=== PATIENT | female | born 1960 | race African-American/Black ===

== ENCOUNTER 2016-09-29 16:04 | Inpatient (IN) | payer OTHER ==
[~2016-09-29] VITALS: Ht 165.1 cm; Wt 96.6 kg
[~2016-09-29 16:04] MED LIST: BACLOFEN10 MG; ECOTRIN81 M1 PO; ENALAPRIL PO; EYE; HCTZ PO; ISORDIL PO; LIPITOR20 MG PO; LIPITOR40 MG; LOPRESSOR25 MG PO; MOTRIN800 M1; NAPROSYN500 M1; NIACIN500 M3 PO; NITROQUICK0.4 M1 SL; PATANOL 5 ML5 ML OP; PERCOCET 325 MG1 TA4; PROVENTIL0.09 MG/A1
[2016-09-29 16:08] VITALS: BP 145/93
--- NOTE | 2016-09-29 16:25 | NUR ---
PT AMBULATED TO BED 1 AT THIS TIME.
--- NOTE | 2016-09-29 16:34 | NUR ---
DR. BENTON AWARE OF THE RESULT OF URINE DIPSTICK AND PREG.
--- NOTE | 2016-09-29 16:37 | NUR ---
PT CAME TO ER W/ C/O GENERALIZED MALAISE X1 WEEK.PT STATES THAT HER MOUTH IS DRY AND SHE'S ALWAYS THIRSTY.PT ALSO CLAIMS THAT SHE IS LOOSING WEIGHT. PT STATES THAT SHE IS FEELING"FLUTTERING PAIN, UNDER LEFT BREAST" AND HER VISSIONS IS BLURRY.HOB ELEVATED.SIDERAILS UP.NEEDS ATTENDED.SAFETY PRECAUTION INSTITUTED. COUSIN AT BEDSIDE.
[2016-09-29] MEDS ORDERED: NACL 0.9% 500 ML IV ONE ×2 (16:39)
[2016-09-29] MEDS ORDERED: INSULIN HUMAN REGULAR 100 UNITS/ML 10 ML VIAL IVP ONE (17:35)
--- NOTE | 2016-09-29 17:37 | NUR ---
PT AAO PT C/O OF BACK PAIN, WILL INFORM MD,IVF ONGOING WELL TOLERATED.
[2016-09-29] MEDS ORDERED: METOPROLOL 25 MG TAB PO ONE (17:55)
[2016-09-29] MEDS ORDERED: ASPIRIN 81 MG TAB.CHEW PO ONE (17:55)
--- NOTE | 2016-09-29 18:20 | NUR ---
Pt talking to cousin, vital sign stable, no distress noted, skin warm to touch resp. even and unlabored, no pain noted at this time.
--- NOTE | 2016-09-29 18:22 | NUR ---
DR BENTON AT BEDSIDE
--- NOTE | 2016-09-29 18:26 | NUR ---
DR PALMA PT REFUSED LOPRESSOR
[2016-09-29] MEDS ORDERED: DEXTROSE 50% 50 ML SYR IVP PRN (18:30)
[2016-09-29] MEDS ORDERED: cloNIDine 0.1 MG TAB PO PRN (18:30)
[2016-09-29] MEDS ORDERED: HYDROcodone/APAP 5/325 MG 1 TAB TAB PO PRN (18:30)
[2016-09-29] MEDS ORDERED: LORazepam 2 MG/ML VIAL IVP PRN (18:30)
[2016-09-29] MEDS ORDERED: ACETAMINOPHEN 325 MG TAB PO PRN (18:30)
[2016-09-29] MEDS ORDERED: ONDANSETRON 4 MG/2 ML VIAL IVP PRN (18:30)
--- NOTE | 2016-09-29 18:32 | NUR ---
REPORT GIVEN TO EB TAM IN TELE
--- NOTE | 2016-09-29 18:45 | NUR ---
TRANSFER TO TELE NOW PT AAO ASSISTED BY YUE.
--- NOTE | 2016-09-29 19:35 | NUR ---
RECEIVED FROM AM RN REPORT RE: NEW PT. AWAKE AND ALERT. NO SOB. DENIES ANY PAIN AT THIS TIME. CARE PLANS FOR THE NIGHT DISCUSSED WITH PT. CALL LIGHT WITH IN REACH. ORIENTED X 4. ROM X 4. CLEAR SPEECH. TELEMETRY MONITORING. DX. OF CHEST PAIN
[2016-09-29 20:00] VITALS: BP 112/80
[2016-09-29] MEDS: BLOOD GLUCOSE MONITORING 1 DEV DEV FS SCH (21:18)
[2016-09-29] MEDS: ISOSORBIDE DINITRATE 10 MG TAB PO SCH (21:19)
[2016-09-29] MEDS: INSULIN ASPART SLIDING SCALE 100 UNITS/ML VIAL SUBQ PRN (21:20)
--- NOTE | 2016-09-29 22:00 | NUR ---
PT. STILL AWAKE AT THIS TIME. DAUGHTERS AT BEDSIDE VISITING. ENCOURAGED TO USE CALL LIGHT FOR ANY HELP SHE MAY NEED. "OK" DENIES ANY PAIN AT THIS TIME. " I JUST WANT TO REST ". TELEMETRY MONITORING.
[2016-09-29] MEDS: diphenhydrAMINE 50 MG CAP PO PRN (22:30)
--- NOTE | 2016-09-30 | NUR ---
PT. SLEEPING. DAUGHTERS LEFT. CALL LIGHT WITH IN REACH. NO SOB. NO RESTLESSNESS NOTED. TELEMETRY MONITORING.
[2016-09-30 00:14] VITALS: BP 113/70
--- NOTE | 2016-09-30 01:36 | NUR ---
PT. SLEEPING AT THIS TIME.
--- NOTE | 2016-09-30 04:00 | NUR ---
CHECKED ON PT. SLEEPING. NO RESTLESSNESS. TELEMETRY MONITORING. HEPLOCKED IV..
[2016-09-30 04:29] VITALS: BP 116/80
[2016-09-30] MEDS: BLOOD GLUCOSE MONITORING 1 DEV DEV FS SCH ×4 (07:00→21:22)
[2016-09-30] MEDS: INSULIN ASPART SLIDING SCALE 100 UNITS/ML VIAL SUBQ PRN ×3 (07:01→21:42)
--- NOTE | 2016-09-30 07:23 | NUR ---
SLEPT WELL THIS SHIFT. WAKES UP WHEN CALLED BY NAME. NO CHEST PAIN COMPLAINT THIS SHIFT.
--- NOTE | 2016-09-30 07:24 | NUR ---
RECEIVED REPORT FROM NIGHT NURSE PAUL RN, PATIENT APPEARED TO BE CALM AWAKE AND RESTING WELL IN BED. AAOX4 NO SIGN OF DISTRESS NOTED. NO SOB OR SIGN OF DISTRESS NOTED AT THIS TIME. INITIAL ASSESSMENT DONE. PATIENT DENIED ANY PAIN OR CHEST DISCOMFORT. VSS WITH NO FEVER. PATIENT HAS IV 20G SL TO RIGHT AC INTACT AND FLUSHED WELL. SKIN INTACT. PLAN OF CARE, PAIN MANAGEMENT AND MEDICATION REGIMENTS DISCUSSED, PATIENT VERBALIZED UNDERSTANDING. CALL LIGHT WITHIN REACH. WILL CONTINUE TO MONITOR.
--- NOTE | 2016-09-30 08:30 | NUR ---
PATIENT HAS BEEN SCREENED AND CATEGORIZED HIGH NUTRITION RISK. PATIENT WILL BE SEEN WITHIN 1-2 DAYS OF ADMISSION. 09/30/16-10/01/[address]
[2016-09-30] MEDS: ISOSORBIDE DINITRATE 10 MG TAB PO SCH ×2 (08:49→21:00)
[2016-09-30] MEDS: ENALAPRIL 2.5 MG TAB PO SCH (08:49)
[2016-09-30] MEDS: ASPIRIN 81 MG TAB.CHEW PO SCH (08:50)
[2016-09-30] MEDS: ENOXAPARIN 40 MG/0.4 ML SYR SUBQ SCH (08:54)
--- NOTE | 2016-09-30 08:55 | NUR ---
MORNING DUE MEDICATIONS WITH TEACHING GIVEN, PATIENT TOLERATED WELL AND VERBALIZED UNDERSTANDING. DENIED ANY PAIN OR DISCOMFORT. ALL NEEDS ARE MET. CALL LIGHT WITHIN REACH. WILL CONTINUE TO MONITOR.
[2016-09-30] MEDS ORDERED: OLOPATADINE HCL OP SCH (09:00)
[2016-09-30] MEDS ORDERED: METOPROLOL 25 MG TAB PO SCH (09:00)
[2016-09-30 10:05] VITALS: BP 96/53
[2016-09-30] MEDS ORDERED: INSULIN DETEMIR 100 UNITS/ML 10 ML VIAL SUBQ SCH (11:39)
[2016-09-30] MEDS ORDERED: MAGNESIUM CHLORIDE 64 MG TABEC PO SCH (11:40)
[2016-09-30 12:00] VITALS: BP 100/55
--- NOTE | 2016-09-30 12:42 | NUR ---
DUE MEDICATION GIVEN AND INSULINS GIVEN FOR BLOOD SUGAR 282. PATIENT TOLERATED WELL. NO SIGN OF DISTRESS NOTED. PATIENT RESTING WELL IN BED. ALL NEEDS ARE MET. CALL LIGHT WITHIN REACH. WILL CONTINUE TO MONITOR.
--- NOTE | 2016-09-30 14:00 | NUR ---
DR PERLA IS HERE TO SEE PATIENT. NO CHANGE IN CONDITION NOTED. HD STILL IN PROGRESS. Addendum: 09/30/16 at 1401 by Rao Kitchen RN WRONG PATIENT
--- NOTE | 2016-09-30 14:01 | NUR ---
DR PERLA IS HERE TO SEE PATIENT. PATIENT RESTING WELL IN BED. NO SIGN OF DISTRESS NOTED.
[2016-09-30 16:00] VITALS: BP 107/69
--- NOTE | 2016-09-30 19:24 | NUR ---
RECEIVED PT REPORT FROM BAIRON TESFAYE AT BEDSIDE FOR CONTINUITY OF CARE. PT IS STABLE, NO ACUTE DISTRESS NOTED.
--- NOTE | 2016-09-30 19:25 | NUR ---
ENDORSED PATIENT CURRENT PLAN OF CARE TO NIGHT NURSE ALAN RN, PATIENT RESTING WELL IN BED WITH NO SIGN OF DISTRESS NOTED. FAMILY MEMBER AT BEDSIDE.
--- NOTE | 2016-09-30 19:50 | NUR ---
SHIFT ASSESSMENT DONE AT THIS TIME. PT STABLE NO ACUTE DISTRESS NOTED. PT IS A/O X4, ABLE TO FOLLOW COMMANDS. VITAL SIGNS ARE STABLE, PT ON ROOM AIR. PT DENIES N/V/D AND OR CHEST PAIN. NO SOB NOTED. LUNGS ARE CLEAR, BOWEL SOUNDS ARE ACTIVE. SKIN INTACT. IV ACCESS TO RT AC #20G, PATENT AND INTACT. DISCUSSED WITH PT PLAN OF CARE, VERBALIZED UNDERSTANDING. CALL LIGHT WITHIN EASY REACH. WILL CONTINUE TO MONITOR PT.
[2016-09-30 20:00] VITALS: BP 106/63
--- NOTE | 2016-09-30 20:01 | NUR ---
RECEIVED TELEPHONE ORDERS FROM DR MARTIN COVERING FOR DR GAMA FOR 4MG MAG SULFATE FOR MAGNESIUM 1.6.
[2016-09-30] MEDS ORDERED: MAG SULF 2000 MG/WATER PREMIX 100 ML IV SCH (20:05)
[2016-09-30] MEDS: PANTOPRAZOLE 40 MG TABEC PO SCH ×2 (21:33→21:44)
[2016-09-30] MEDS: diphenhydrAMINE 50 MG CAP PO PRN (21:39)
--- NOTE | 2016-09-30 21:42 | NUR ---
ADMINISTERED INSULIN FOR BLOOD GLUCOSE OF 311. PM MEDICATIONS TOLERATED WELL. WILL CONTINUE TO MONITOR PT.
--- NOTE | 2016-09-30 22:44 | NUR ---
RT ARM IV SITE INFILTRATED, IVP STOPPED. WILL RESTART NEW IV.
[2016-10-01] VITALS: BP 99/58
--- NOTE | 2016-10-01 01:00 | NUR ---
VSS. NO ACUTE DISTRESS. DENIES CHEST PAIN OR SOB.
--- NOTE | 2016-10-01 02:00 | NUR ---
PT NOTED SLEEPING NO DISTRESS. IV ACCESS STILL INTACT.
--- NOTE | 2016-10-01 03:07 | NUR ---
PT SLEEPING, NO DISTRESS.
--- NOTE | 2016-10-01 03:56 | NUR ---
VITAL SIGNS ARE STABLE. NO DISTRESS, PT SLEEPING WELL.
[2016-10-01 04:00] VITALS: BP 100/62
[2016-10-01] MEDS: BLOOD GLUCOSE MONITORING 1 DEV DEV FS SCH ×4 (06:35→20:51)
[2016-10-01] MEDS: INSULIN ASPART SLIDING SCALE 100 UNITS/ML VIAL SUBQ PRN ×4 (06:38→20:53)
--- NOTE | 2016-10-01 07:31 | NUR ---
ENDORSED PT TO BAIRON TESFAYE FOR CONTINUITY OF CARE. NO DISTRESS. PT SLEEPING.
--- NOTE | 2016-10-01 07:35 | NUR ---
RECEIVED REPORT FROM NIGHT NURSE ALAN TESFAYE, PATIENT APPEARED TO BE ASLEEP AWAKE TO NAME CALLED RESTING WELL IN BED. AAOX4 NO SIGN OF DISTRESS NOTED. O2 SAT 100% ON ROOM AIR. NO SOB OR SIGN OF DISTRESS NOTED AT THIS TIME. INITIAL ASSESSMENT DONE. PATIENT DENIED ANY PAIN OR CHEST DISCOMFORT. VSS WITH NO FEVER. PATIENT HAS IV 22G SL TO RIGHT FOREARM INTACT AND FLUSHED WELL. SKIN INTACT. PLAN OF CARE, PAIN MANAGEMENT AND MEDICATION REGIMENTS DISCUSSED, PATIENT VERBALIZED UNDERSTANDING. CALL LIGHT WITHIN REACH. WILL CONTINUE TO MONITOR.
[2016-10-01 08:00] VITALS: BP 109/65
[2016-10-01] MEDS: ENOXAPARIN 40 MG/0.4 ML SYR SUBQ SCH (08:32)
[2016-10-01] MEDS: INSULIN DETEMIR 100 UNITS/ML 10 ML VIAL SUBQ SCH (08:33)
--- NOTE | 2016-10-01 08:36 | NUR ---
DUE SUBQ DUE MEDICATIONS GIVEN WITH TEACHING. PATIENT TOLERATED WELL AND VERBALIZED UNDERSTANDING. NO SIGN OF DISTRESS NOTED. PATIENT DENIED ANY DISCOMFORT. ALL NEEDS ARE MET AT THIS TIME. CALL LIGHT WITHIN REACH. WILL CONTINUE TO MONITOR.
[2016-10-01] MEDS: METOPROLOL 25 MG TAB PO SCH (08:37)
[2016-10-01] MEDS: ISOSORBIDE DINITRATE 10 MG TAB PO SCH ×2 (08:37→21:00)
[2016-10-01] MEDS: ENALAPRIL 2.5 MG TAB PO SCH (08:37)
--- NOTE | 2016-10-01 09:39 | NUR ---
CHECKED IN ON PATIENT. NO SIGN OF DISTRESS NOTED. NO COMPLAINING OF DISCOMFORT. PROVIDED TEACHING WITH DIABETIC CARE AND MANAGEMENT. PATIENT VERBALIZED UNDERSTANDING. WILL CONTINUE TO MONITOR.
--- NOTE | 2016-10-01 09:42 | NUR ---
CM NOTE INITIAL REVIEW FAXED TO [facility] / FAX# [phone], C: [phone]
[2016-10-01] MEDS ORDERED: REGADENOSON 0.4 MG/5 ML SYR IV SCH (10:00)
--- NOTE | 2016-10-01 11:57 | NUR ---
PATIENT LEFT THE FLOOR FOR [facility] WITH NO SIGN OF DISTRESS NOTED. DENIED ANY PAIN OR DISCOMFORT.
--- NOTE | 2016-10-01 12:13 | NUR ---
10/01/16 RD INITIAL ASSESSMENT COMPLETED PLEASE REFER TO NUTRITION ASSESSMENT UNDER CARE ACTIVITY FOR ESTIMATED NUTRITIONAL NEEDS. RD RECOMMENDATIONS: 1. CONTINUE NPO MEDICALLY APPROPRIATE PER MD 2. WHEN MEDICALLY APPROPRIATE ADVANCE DIET TOLERATED TO CCHO 60 GM, CARDIAC DIET 3. RD PROVIDED PT WITH DM DIET EDUCATION 4. RD WILL F/U 3-5 DAYS; MODERATE RISK. UMA MARTINEZ RD
[2016-10-01] MEDS ORDERED: SIMVASTATIN 40 MG TAB PO SCH (12:30)
--- NOTE | 2016-10-01 13:20 | NUR ---
LEXISCAN STRESS TEST DONE.
--- NOTE | 2016-10-01 14:05 | NUR ---
PATIENT BACK TO UNIT FROM [facility]. PATIENT REMAIN CALM, AWAKE AND RESTING WELL IN BED. NO SIGN OF DISTRESS NOTED. DENIED ANY PAIN OR DISCOMFORT. UPDATED PATIENT CURRENT PLAN OF CARE, PATIENT VERBALIZED UNDERSTANDING. CALL LIGHT WITHIN REACH. WILL CONTINUE TO MONITOR.
[2016-10-01 14:10] VITALS: BP 112/71
[2016-10-01] MEDS: ASPIRIN 81 MG TAB.CHEW PO SCH (14:34)
[2016-10-01] MEDS: ATORVASTATIN 20 MG TAB PO SCH (14:34)
--- NOTE | 2016-10-01 14:53 | NUR ---
PAT[facility]. SANDWICH GIVEN PER PATIENT REQUEST. INSULIN 4UNIT GIVEN FOR BLOOD SUGAR OF 212. WILL CONTINUE TO MONITOR.
--- NOTE | 2016-10-01 15:51 | NUR ---
REACH BACK LEXISCAN IMPRESSION RESULT TO DR. PERLA. STATED HE WILL CALL BACK. AWAITING FOR MD CALL BACK.
--- NOTE | 2016-10-01 16:24 | NUR ---
DR PERLA TALKED TO PATIENT ON THE PHONE AND EXPLAINED PATIENT CURRENT PLAN OF CARE.
--- NOTE | 2016-10-01 16:24 | NUR ---
RECEIVED TELEPHONE ORDER FROM DR PERLA. WILL FOLLOW THROUGH MD ORDERS.
--- NOTE | 2016-10-01 16:56 | NUR ---
ENDORSED PATIENT TO NURSE Jagdish WALTER RN FOR CONTINUITY OF CARE. PATIENT RESTING WELL IN BED. NO SIGN OF DISTRESS NOTED AT THIS TIME.
--- NOTE | 2016-10-01 16:57 | NUR ---
RECEIVED REPORT FROM BRIEN WADDELL. WILL CONTINUE WITH CURRENT PLAN OF CARE. MNURVI.
--- NOTE | 2016-10-01 17:31 | NUR ---
FOOD TRAYS ARRIVED TO UNIT. BLOOD GLUCOSE 284, ADMINISTERED 6 UNITS OF INSULIN ORDERED. PT TOLERATED WELL. WILL CONTINUE TO MONITOR.
--- NOTE | 2016-10-01 19:26 | NUR ---
ENDORSED CARE TO BRIEN WATKINS. PT IN STABLE CONDITION.
--- NOTE | 2016-10-01 19:27 | NUR ---
RECEIVE REPORT FOR DAY SHIFT NURSE, JOSE ANGEL Armstrong, RN. PATIENT IS AAOX4, FAMILY MEMBER AT BEDSIDE, DENIES ANY PAIN AT THIS TIME. ON ROOM AIR, NO S/S OF RESPIRATORY DISTRESS/DISCOMFORT NOTED. SKIN IS INTACT, WARM TO TOUCH, IV SITE IS PATENT AND INTACT. PLAN OD CARE DISCUSSED, VERBALIZED UNDERSTANDING. SAFETY MEASURES CHECKED, CALL LIGHT WITHIN REACH. WILL CONTINUE TO MONITOR.
[2016-10-01 20:00] VITALS: BP 103/71
--- NOTE | 2016-10-01 20:53 | NUR ---
BSL 283, INSULIN COVERAGE WAS GIVEN. EDUCATED THE THE PATIENT ABOUT INSULIN BENEFITS AND SIDE EFFECTS, VERBALIZED UNDERSTANDING.
[2016-10-01] MEDS: diphenhydrAMINE 50 MG CAP PO PRN (23:06)
[2016-10-02] VITALS: BP 91/55
--- NOTE | 2016-10-02 | NUR ---
V/S CHECKED AND STABLE. DENIES ANY PAIN. NO S/S OF RESPIRATORY DISTRESS/DISCOMFORT NOTED.
--- NOTE | 2016-10-02 02:00 | NUR ---
PT IS SLEEPING. NO S/S OF RESPIRATORY DISTRESS/DISCOMFORT NOTED.
[2016-10-02 04:00] VITALS: BP_SYST 81; BP_SYST 87; BP_DIAS 49; BP_DIAS 57
[2016-10-02] MEDS: BLOOD GLUCOSE MONITORING 1 DEV DEV FS SCH ×2 (05:27→11:58)
[2016-10-02] MEDS: INSULIN ASPART SLIDING SCALE 100 UNITS/ML VIAL SUBQ PRN ×2 (05:39→12:16)
--- NOTE | 2016-10-02 07:20 | NUR ---
ENDORSED REPORT TO AM NURSE FOR CONTINUITY OF CARE. PT IS IN STABLE CONDITION.
--- NOTE | 2016-10-02 07:30 | NUR ---
RECEIVED PT RESTING COMFORTABLY IN BED. AAOX4, ABLE TO VERBALIZE NEEDS. NO COMPLAINTS OF CHEST PAIN, SOB, OR S/S ACUTE DISTRESS. ROUTINE/PLAN OF CARE DISCUSSED AND REVIEWED, PT VERBALIZES UNDERSTANDING AND COMPLIANCE. IV SL TO RIGHT FA, SITE ASYMPTOMATIC. INDEPENDENT ADLs OBSERVED, STEADY GAIT NOTED. SAFETY PRECAUTIONS OBSERVED AND MAINTAINED. CALL LIGHT WITHIN REACH. WILL CONTINUE TO MONITOR.
[2016-10-02 08:00] VITALS: BP 99/65
[2016-10-02] MEDS: ISOSORBIDE DINITRATE 10 MG TAB PO SCH (09:00)
[2016-10-02] MEDS: METOPROLOL 25 MG TAB PO SCH (09:00)
[2016-10-02] MEDS: ATORVASTATIN 20 MG TAB PO SCH (09:00)
[2016-10-02] MEDS: PANTOPRAZOLE 40 MG TABEC PO SCH (09:00)
[2016-10-02] MEDS: ASPIRIN 81 MG TAB.CHEW PO SCH (09:00)
[2016-10-02] MEDS: ENOXAPARIN 40 MG/0.4 ML SYR SUBQ SCH (09:00)
[2016-10-02] MEDS: ENALAPRIL 2.5 MG TAB PO SCH (09:00)
[2016-10-02] MEDS: INSULIN DETEMIR 100 UNITS/ML 10 ML VIAL SUBQ SCH (09:00)
--- NOTE | 2016-10-02 09:00 | NUR ---
FAROOQ. BRODERICKO FOR COMPLIANCE REVIEW SPECIALIST PROCEDURE AT [facility], HELD MEDS AND LOVENOX ORDERED.
--- NOTE | 2016-10-02 09:00 | NUR ---
CM NOTE SPOKE W/ JAMES FROM [facility] CARDIAC CATH ([phone]). VERIFIED PATIENT IS ON SCHEDULED FOR CARDIAC CATH PROCEDURE @ 1700; REQUESTING PATIENT TO BE TRANSFERRED AROUND 1500. LAB VALUES AND H&P FAXED OVER. PENDING AUTH FOR TRANSPORT FROM [facility].
[2016-10-02] MEDS ORDERED: GLUCOPHAGE500 MG PO (10:18)
[2016-10-02] MEDS ORDERED: LIPITOR20 MG PO (10:19)
[2016-10-02 10:21] VITALS: BP 99/65
[2016-10-02 12:00] VITALS: BP 114/72
--- NOTE | 2016-10-02 12:05 | NUR ---
0830 CALL PLACED TO [facility] AND SPOKE WITH YANI REGARDING PT NEEDS TRANSFER TO [facility] FOR CARDIAC CATH. REQUESTED THAT A FACE SHEET BE FAXED, INFORMED HIM THAT ORDER ALREADY FAXED TO [phone]. 1058 CALLED [facility]ORIA BACK [phone] AND SPOKE WITH GIRISH WHO STATED THAT THE ASSIGNED CM FOR PT IS [facility] SANDOVAL AT [phone] X [phone] AND SHE TRANSFERRED ME AND RECEIVED VM. LEFT VM REGARDING PT IS SCHEDULED AT [facility] TODAY AT 5PM FOR CARDIAC CATH AND REQUESTING AUTHORIZATION FOR PV AND FOR TRANSPORTATION. 1135 RECEIVED CALL FROM GAYLA AT [facility] AND FURTHER INFORMATION PROVIDED. GAYLA STATED THAT PT IS ENTERED OBS. INFORMED HER THAT PT INITIALLY ADMITTED OBS BUT WAS CHANGED TO INPATIENT 09/30 AND THAT A CLINICAL REVIEW WAS SENT ON 10/01 WITH THAT INDICATED. GAYLA STATED WOULD BE NOTED. 1158 RECEIVED A CALL FROM [facility] AND SHE INDICATED THAT SHE WOULD REQUEST AUTH URGENT. WILL CALL BACK WITH [facility] FOR [facility] AND FOR TRANSPORT.
[2016-10-02] MEDS ORDERED: DEXT 5% / NACL 0.9% 500 ML IV SCH (12:10)
--- NOTE | 2016-10-02 12:15 | NUR ---
VSS. EC=[id number], NOTIFIED SAVANNA MCCLELLAN TO GIVE 2 UNITS OF NOVOLIN PER SLIDING SCALE, D5 @ 50ML/HR ADMINISTERED AT THIS TIME. DM TEACHING GIVEN. PT VERBALIZES UNDERSTANDING.
--- NOTE | 2016-10-02 12:55 | NUR ---
ACLS TRANSPORT SCHEDULED WITH [facility] FOR 2;30 PRINT FINISHING WORKER. PROVIDED [facility] AUTH# [id number] PROVIDED BY [facility] AT [facility].
--- NOTE | 2016-10-02 14:00 | NUR ---
CONDITION REMAINS STABLE. DC Rx, INSTRUCTIONS, AND EDUCATION DISCUSSED, COPIES GIVEN; PT VERBALIZES UNDERSTANDING AND SIGNS ALL FORMS.
--- NOTE | 2016-10-02 14:13 | NUR ---
CM NOTE INITIAL REVIEW FAXED TO [facility] / FAX# [phone], C: [phone]
--- NOTE | 2016-10-02 15:25 | NUR ---
TRANSFERRED PT TO [facility] VIA [facility] AT THIS TIME IN STABLE CONDITION.
[2016-10-02 16:00] VITALS: BP 127/64
== END 2016-10-02 15:25 | disposition short-term general hospital (02) | DRG 198 ==
LOC: MED 16:04 → MTU 18:34 → UNDOADMOB 18:35 → MTU 18:35 → OBSVTOIN 09-30 10:15 → MTU 09-30 10:15 → UNDOADMOB 09-30 10:15 → INTOOBSV 10-02 08:38 → OBSVTOIN 10-02 08:38 → UNDODISIN 10-02 15:25
PROVIDERS: ADMIT Hospitalist; ATTEND Hospitalist
DX: I24.9 Acute ischemic heart disease, unspecified (principal); E11.65 Type 2 diabetes mellitus with hyperglycemia; I10 Essential (primary) hypertension; E78.5 Hyperlipidemia, unspecified; I25.10 Atherosclerotic heart disease of native coronary artery without angina pectoris; J45.909 Unspecified asthma, uncomplicated; R63.4 Abnormal weight loss; K21.9 Gastro-esophageal reflux disease without esophagitis; Z98.61 Coronary angioplasty status; Z79.899 Other long term (current) drug therapy; Z68.35 Body mass index [BMI] 35.0-35.9, adult; Z83.3 Family history of diabetes mellitus
CPT/HCPCS: 96374; 99285; G0378

== ENCOUNTER 2016-12-15 14:41 | Emergency (ER) | payer OTHER ==
[~2016-12-15] VITALS: Ht 165.1 cm; Wt 97.5 kg
[~2016-12-15 14:41] MED LIST changes: +GLUCOPHAGE500 MG PO
[2016-12-15 14:54] VITALS: BP 137/76
--- NOTE | 2016-12-15 15:01 | NUR ---
Note undone in EDM - 12/15/16 at 1539 by RADHA PATIENT PRESENTS TO ED WITH C/O DENIES PAIN AT THIS TIME. HX: DM,HIGH CHOL.,HYPOTENTION,HYSTERECTOMY; DENIES N/V/D; SKIN IS PINK/WARM/DRY; AAOX4 WITH EVEN AND STEADY GAIT; LUNGS CLEAR BL; HR EVEN AND REGULAR; PT DENIES ANY FEVER, CP, SOB, OR COUGH AT THIS TIME; PATIENT STATES PAIN OF 0/10 AT THIS TIME; VSS; PATIENT POSITIONED FOR COMFORT; HOB ELEVATED; BEDRAILS UP X2; BED DOWN. ER MD MADE AWARE OF PT STATUS.
[2016-12-15] MEDS ORDERED: GLUCOTROL XL5 M1 PO (15:04)
--- NOTE | 2016-12-15 15:20 | NUR ---
Patient ambulated to bed 6. RN evaluating patient at bedside.
--- NOTE | 2016-12-15 15:30 | NUR ---
PATIENT PRESENTS TO ED WITH C/O DENIES PAIN AT THIS TIME. HX: DM,HIGH CHOL.,HYPOTENTION,HYSTERECTOMY; DENIES N/V/D; SKIN IS PINK/WARM/DRY; AAOX4 WITH EVEN AND STEADY GAIT; LUNGS CLEAR BL; HR EVEN AND REGULAR; PT DENIES ANY FEVER, CP, SOB, OR COUGH AT THIS TIME; PATIENT STATES PAIN OF 0/10 AT THIS TIME; VSS; PATIENT POSITIONED FOR COMFORT; HOB ELEVATED; BEDRAILS UP X2; BED DOWN. ER MD MADE AWARE OF PT STATUS.
[2016-12-15 16:04] VITALS: BP 100/60
--- NOTE | 2016-12-15 16:04 | NUR ---
Patient discharged with v/s stable. Written and verbal after care instructions given and explained. Patient alert, oriented and verbalized understanding of instructions. Ambulatory with steady gait. All questions addressed prior to discharge. ID band removed. Patient advised to follow up with PMD. Rx of NYSTATIN given. Patient educated on indication of medication including possible reaction and side effects. Opportunity to ask questions provided and answered.
== END 2016-12-15 16:04 | disposition home or self-care (01) ==
LOC: MED 14:44
DX: B37.0 Candidal stomatitis (principal); E11.9 Type 2 diabetes mellitus without complications; J45.909 Unspecified asthma, uncomplicated; K21.9 Gastro-esophageal reflux disease without esophagitis; I10 Essential (primary) hypertension; Z88.6 Allergy status to analgesic agent; Z88.5 Allergy status to narcotic agent

== ENCOUNTER 2019-01-24 17:57 | Emergency (ER) | payer OTHER ==
[~2019-01-24] VITALS: Ht 165.1 cm; Wt 95.3 kg
[~2019-01-24 17:57] MED LIST changes: -BACLOFEN10 MG; -ECOTRIN81 M1 PO; -ENALAPRIL PO; -EYE; +GLIP5TER PO; -GLUCOPHAGE500 MG PO; -HCTZ PO; -ISORDIL PO; -LIPITOR20 MG PO; -LIPITOR40 MG; -LOPRESSOR25 MG PO; +METF500T PO; -MOTRIN800 M1; -NAPROSYN500 M1; -NIACIN500 M3 PO; -NITROQUICK0.4 M1 SL; -PATANOL 5 ML5 ML OP; -PERCOCET 325 MG1 TA4; -PROVENTIL0.09 MG/A1
[2019-01-24 18:26] VITALS: BP 151/78
--- NOTE | 2019-01-24 18:49 | NUR ---
PATIENT AMBULATED TO ER CHAIR B.
--- NOTE | 2019-01-24 18:49 | NUR ---
PT IS A 58 Y/O FEMALE WHO PRESENTS TO THE ED C/O BUG BITES. PT STATES THAT SHE HAS RED RASH AND ITCHING ON BILATERAL ARMS AND LEGS. PT REPORTS 3/10 ACHING PAIN THAT DOES NOT RADIATE. NOTED RASHES. PT DENIES CP, SOB, N/V/D. PT AWAKE AND ALERT, RR EVEN/UNLABORED. PT REPOSITIONED FOR COMFORT, PT SITTING IN CHAIR. ER PROVIDER NOTIFIED. WILL CONTINUE TO MONITOR. HX OF DM, HYPOTENSION, HYPERLIPIDIMIA. ALLERGIES-ACETAMINOPHEN, HYDROCODONE Addendum: 01/24/19 at 1857 by MEDDCV PT IS A 58 Y/O FEMALE WHO PRESENTS TO THE ED C/O BUG BITES. PT STATES THAT SHE HAS RED RASH AND ITCHING ON BILATERAL ARMS AND LEGS. PT REPORTS 8/10 ACHING PAIN THAT DOES NOT RADIATE. NOTED RASHES. PT DENIES CP, SOB, N/V/D. PT AWAKE AND ALERT, RR EVEN/UNLABORED. PT REPOSITIONED FOR COMFORT, PT SITTING IN CHAIR. ER PROVIDER NOTIFIED. WILL CONTINUE TO MONITOR. HX OF DM, HYPOTENSION, HYPERLIPIDIMIA. ALLERGIES-ACETAMINOPHEN, HYDROCODONE
[2019-01-24 19:30] VITALS: BP 151/78
--- NOTE | 2019-01-24 19:30 | NUR ---
Patient discharged with v/s stable. Written and verbal after care instructions given and explained. Patient alert, oriented and verbalized understanding of instructions. Ambulatory with steady gait. All questions addressed prior to discharge. ID band removed. Patient advised to follow up with PMD. Rx of HYDROCORTISONE OINTMENT AND DOXYCYCLINE given. Patient educated on indication of medication including possible reaction and side effects. Opportunity to ask questions provided and answered.
== END 2019-01-24 19:30 | disposition home or self-care (01) ==
LOC: MED 17:57
DX: S50.862A Insect bite (nonvenomous) of left forearm, initial encounter (principal); S50.861A Insect bite (nonvenomous) of right forearm, initial encounter; S80.862A Insect bite (nonvenomous), left lower leg, initial encounter; S80.861A Insect bite (nonvenomous), right lower leg, initial encounter; E11.9 Type 2 diabetes mellitus without complications; J45.909 Unspecified asthma, uncomplicated; K21.9 Gastro-esophageal reflux disease without esophagitis; I10 Essential (primary) hypertension; F03.90 Unspecified dementia, unspecified severity, without behavioral disturbance, psychotic disturbance, mood disturbance, and anxiety; Z88.6 Allergy status to analgesic agent; Z88.5 Allergy status to narcotic agent; Z79.84 Long term (current) use of oral hypoglycemic drugs; Z98.62 Peripheral vascular angioplasty status; W57.XXXA Bitten or stung by nonvenomous insect and other nonvenomous arthropods, initial encounter; Y93.89 Activity, other specified; Y92.89 Other specified places as the place of occurrence of the external cause; Y99.8 Other external cause status
CPT/HCPCS: 99283

== ENCOUNTER 2019-08-16 21:24 | Emergency (ER) | payer OTHER ==
[~2019-08-16] VITALS: Ht 165.1 cm; Wt 93.0 kg
[2019-08-16 21:49] VITALS: BP 155/105
[2019-08-16 22:31] LABS: BASOPHILS # (AUTO) 0.1 K/uL (0.00-0.22); BASOPHILS % (AUTO) 1.5 % (0.0-2.0); EOSINOPHILS # (AUTO) 0.2 K/uL (0-0.4); EOSINOPHILS % (AUTO) 3.9 % (0.0-4.0); HEMATOCRIT 39.7 % (36-48); HEMOGLOBIN 12.6 g/dL (12.0-16.0); LYMPHOCYTES # (AUTO) 2.7 K/uL (2.5-16.5); LYMPHOCYTES % (AUTO) 41.9 % (20.5-51.1); MEAN CORPUSCULAR HEMOGLOBIN 26 pg (27-31); MEAN CORPUSCULAR HGB CONC 32 g/dL (33-37); MONOCYTES # (AUTO) 0.3 K/uL (0.8-1.0); NEUTROPHILS # (AUTO) 3.1 K/uL (1.8-7.7); NEUTROPHILS % (AUTO) 47.7 % (42.2-75.2); PLATELET COUNT (AUTO) 219 K/uL (140-450); RED BLOOD CELL COUNT(AUTO) 4.79 MIL/uL (4.20-5.40); RED CELL DISTRIBUTION WIDTH 14.6 % (11.6-13.7); WHITE BLOOD COUNT (AUTO) 6.4 K/uL (4.8-10.8)
[2019-08-16 22:51] LABS: ANION GAP 10.4 (8-16); CARBON DIOXIDE 28.2 mmol/L (21-32); CREATININE 0.8 mg/dL (0.6-1.3); POTASSIUM 3.6 mmol/L (3.5-5.1)
[2019-08-16 22:57] LABS: ALBUMIN 3.7 g/dL (3.4-5.0); TOTAL BILIRUBIN 0.3 mg/dL (0.0-1.0)
[2019-08-16] MEDS ORDERED: ENALAPRIL 5 MG TAB PO ONE (23:15)
[2019-08-16] MEDS ORDERED: KETOROLAC 60 MG/2 ML VIAL IM ONE (23:15)
[2019-08-16 23:48] VITALS: BP 125/87
== END 2019-08-16 23:48 | disposition home or self-care (01) ==
LOC: MED 21:24
DX: R07.9 Chest pain, unspecified (principal); R51 Headache; J45.909 Unspecified asthma, uncomplicated; E11.9 Type 2 diabetes mellitus without complications; K21.9 Gastro-esophageal reflux disease without esophagitis; I10 Essential (primary) hypertension; Z90.49 Acquired absence of other specified parts of digestive tract; Z90.710 Acquired absence of both cervix and uterus; Z98.890 Other specified postprocedural states; Z98.61 Coronary angioplasty status; Z79.84 Long term (current) use of oral hypoglycemic drugs; Z88.6 Allergy status to analgesic agent; Z88.5 Allergy status to narcotic agent
CPT/HCPCS: 36415; 71045; 80053; 84484; 85025; 93005; 96372; 99284; J1885

== ENCOUNTER 2019-09-18 16:05 | Emergency (ER) | payer OTHER ==
[~2019-09-18] VITALS: Ht 162.6 cm; Wt 93.0 kg
[2019-09-18 16:35] VITALS: BP 117/66
--- NOTE | 2019-09-18 16:43 | NUR ---
TO LOBBY. AWAITING BED IN ED.
--- NOTE | 2019-09-18 17:28 | NUR ---
PT WHEELCHAIRED TO BED 12
--- NOTE | 2019-09-18 17:36 | NUR ---
58 Y/O F C/C BACK PAIN X3 MONTHS DUE TO FALL. PT DOES NOT REMEMBER HOW SHE FELL 3 MONTHS AGO. PAIN 10/10 RADIATING TO LLE, AND CAUSING SPASMS ON RLE. PT ALLERGIES TO NORCO. HX DM,HYPOTENSION. RX METFORMIN,GLUCOSIDE. NO N/V/D. SIDE RAIL X1. FAMILY AT BEDSIDE. CMS/ROM INTACT.
[2019-09-18] MEDS ORDERED: MORPHINE SULFATE 2 MG/ML SYR IM ONE (17:50)
[2019-09-18] MEDS ORDERED: ONDANSETRON 4 MG ODT PO ONE (17:50)
[2019-09-18 18:09] VITALS: BP 117/66
--- NOTE | 2019-09-18 18:09 | NUR ---
Patient discharged with v/s stable. Written and verbal after care instructions given and explained. Patient alert, oriented and verbalized understanding of instructions. Ambulatory with steady gait. All questions addressed prior to discharge. ID band removed. Patient advised to follow up with PMD. Rx of TRAMADOL,ZOFRAN given. Patient educated on indication of medication including possible reaction and side effects. Opportunity to ask questions provided and answered.
== END 2019-09-18 18:09 | disposition home or self-care (01) ==
LOC: MED 16:05
DX: M54.42 Lumbago with sciatica, left side (principal); J45.909 Unspecified asthma, uncomplicated; E11.9 Type 2 diabetes mellitus without complications; F03.90 Unspecified dementia, unspecified severity, without behavioral disturbance, psychotic disturbance, mood disturbance, and anxiety; K21.9 Gastro-esophageal reflux disease without esophagitis; I10 Essential (primary) hypertension; Z79.84 Long term (current) use of oral hypoglycemic drugs; Z88.5 Allergy status to narcotic agent; Z88.8 Allergy status to other drugs, medicaments and biological substances; Z79.899 Other long term (current) drug therapy
CPT/HCPCS: 82948; 96372; 99283; J2270; Q0162

== ENCOUNTER 2020-02-10 09:43 | Emergency (ER) | payer OTHER ==
[~2020-02-10] VITALS: Ht 165.1 cm; Wt 90.7 kg
[2020-02-10 09:47] VITALS: BP 138/91
--- NOTE | 2020-02-10 09:55 | NUR ---
59 Y/O FEMALE FROM HOME C/O HEMATURIA, DYSURIA, HESITENCY, AND INCREASED FREQUENCY IN URINATION X 3 DAYS. STATES SHE HAS FREQUENT UTI'S. STATES SUPRAPUBIC TENDERNESS WELL LOWER BACK PAIN. HEMATURIA STARTED THIS MORNING. AFEBRILE. RR EVEN AND UNLABORED. VSS MEDHX: DM, HTN
--- NOTE | 2020-02-10 09:56 | NUR ---
URINE COLLECTED FROM PT AT THIS TIME
--- NOTE | 2020-02-10 10:44 | NUR ---
PT MOVED TO BED 11
--- NOTE | 2020-02-10 10:49 | NUR ---
TRANSFER TABLE OPERATOR AT BEDSIDE
[2020-02-10 11:02] LABS: BASOPHILS % (AUTO) 0.8 % (0.0-2.0); EOSINOPHILS # (AUTO) 0.2 K/uL (0-0.4); EOSINOPHILS % (AUTO) 3.4 % (0.0-4.0); HEMATOCRIT 37.6 % (36-48); LYMPHOCYTES # (AUTO) 1.6 K/uL (2.5-16.5); LYMPHOCYTES % (AUTO) 28.8 % (20.5-51.1); MEAN CORPUSCULAR HEMOGLOBIN 27 pg (27-31); MEAN CORPUSCULAR HGB CONC 32 g/dL (33-37); MEAN CORPUSCULAR VOLUME 83.7 fL (80-94); MONOCYTES # (AUTO) 0.3 K/uL (0.8-1.0); MONOCYTES % (AUTO) 5.3 % (1.7-9.3); NEUTROPHILS # (AUTO) 3.5 K/uL (1.8-7.7); NEUTROPHILS % (AUTO) 61.7 % (42.2-75.2); PLATELET COUNT (AUTO) 205 K/uL (140-450); RED CELL DISTRIBUTION WIDTH 14.5 % (11.6-13.7); WHITE BLOOD COUNT (AUTO) 5.6 K/uL (4.8-10.8)
[2020-02-10] MEDS ORDERED: KETOROLAC 30 MG/ML VIAL IM ONE (11:15)
[2020-02-10 11:36] LABS: CARBON DIOXIDE 24.7 mmol/L (21-32); CREATININE 0.8 mg/dL (0.6-1.3); POTASSIUM 3.7 mmol/L (3.5-5.1)
--- NOTE | 2020-02-10 13:07 | NUR ---
DR. CLAIRE SPEAKING W/ PT AT BEDSIDE
--- NOTE | 2020-02-10 13:24 | NUR ---
Patient discharged with v/s stable. Written and verbal after care instructions given and explained. Patient alert, oriented and verbalized understanding of instructions. Ambulatory with steady gait. All questions addressed prior to discharge. ID band removed. Patient advised to follow up with PMD. Rx of KEFLEX, MOTRIN, TRAMADOL given. Patient educated on indication of medication including possible reaction and side effects. Opportunity to ask questions provided and answered.
[2020-02-10 13:25] VITALS: BP 133/89
--- NOTE | 2020-02-10 13:32 | NUR ---
YELLOW CAB AND TAXI ARRANGED FOR PATIENT. 45 MIN ETA. [address] PATIENT REQUEST[address] TO GO TO: [address]
--- NOTE | 2020-02-10 13:33 | NUR ---
PT MADE AWARE AND WAITING IN ER LOBBY FOR TAXI.
== END 2020-02-10 13:24 | disposition home or self-care (01) ==
LOC: MED 09:43 → UNDOADMIN 12:18 → MTU 12:18 → MED 13:24
DX: N39.0 Urinary tract infection, site not specified (principal); E11.9 Type 2 diabetes mellitus without complications; K21.9 Gastro-esophageal reflux disease without esophagitis; E07.9 Disorder of thyroid, unspecified; I11.9 Hypertensive heart disease without heart failure; F03.90 Unspecified dementia, unspecified severity, without behavioral disturbance, psychotic disturbance, mood disturbance, and anxiety; J45.909 Unspecified asthma, uncomplicated; Z88.5 Allergy status to narcotic agent; Z88.6 Allergy status to analgesic agent
CPT/HCPCS: 36415; 80048; 81002; 81025; 85025; 87086; 96372; 99283; J1885

== ENCOUNTER 2021-09-09 10:56 | Emergency (ER) | payer OTHER ==
[~2021-09-09] VITALS: Ht 165.1 cm; Wt 81.6 kg
[~2021-09-09 10:56] MED LIST changes: +ASPI-1749 PO; +ATOR20TA40 PO; +BEN50 PO; +LISI5TAB24 PO; +METF500T2 PO; +METO25TA PO; +NITR0.4T1 SL; +PRED1TAB2 PO; +PRON INH
[2021-09-09 11:00] VITALS: BP 137/97
--- NOTE | 2021-09-09 11:05 | NUR ---
PT TO LOBBY TO WAIT.
[2021-09-09] MEDS ORDERED: KETOROLAC 30 MG/ML VIAL IM ONE (11:25)
[2021-09-09] MEDS ORDERED: LISI-486 PO (11:37)
--- NOTE | 2021-09-09 12:18 | NUR ---
Patient discharged with v/s stable. Written and verbal after care instructions ABOUT HYPERTENSION given and explained. Patient alert, oriented and verbalized understanding of instructions. Ambulatory with steady gait. All questions addressed prior to discharge. ID band removed. Patient advised to follow up with PMD. Rx of LISINOPRIL given. Patient educated on indication of medication including possible reaction and side effects. Opportunity to ask questions provided and answered.
== END 2021-09-09 12:18 | disposition home or self-care (01) ==
LOC: MED 10:56
DX: I10 Essential (primary) hypertension (principal); R51.9 Headache, unspecified; R00.0 Tachycardia, unspecified; J45.909 Unspecified asthma, uncomplicated; E11.9 Type 2 diabetes mellitus without complications; K21.9 Gastro-esophageal reflux disease without esophagitis; Z90.49 Acquired absence of other specified parts of digestive tract; Z98.890 Other specified postprocedural states; Z98.61 Coronary angioplasty status; Z79.899 Other long term (current) drug therapy; Z79.82 Long term (current) use of aspirin; Z88.5 Allergy status to narcotic agent; Z88.8 Allergy status to other drugs, medicaments and biological substances
CPT/HCPCS: 96372; 99283; J1885

== ENCOUNTER 2021-11-11 18:53 | Emergency (ER) | payer OTHER ==
[~2021-11-11] VITALS: Ht 165.1 cm; Wt 80.3 kg
[~2021-11-11 18:53] MED LIST changes: +LISI-486 PO
[2021-11-11 19:00] VITALS: BP 134/86
--- NOTE | 2021-11-11 20:35 | NUR ---
ambulatory to bed 01.
--- NOTE | 2021-11-11 20:40 | NUR ---
60/F BIB SELF WITH CHIEF COMPLAINT OF CHEST PAIN. A&OX4. VERBALLY RESPONSIVE AND ABLE TO COMMUNICATE NEEDS. VSS. PER PT, CHEST PAIN STARTED LAST THURSDAY AND WORSENED TODAY AT 1530. PT DESCRIBES PAIN IN LEFT CHEST STABBING AND ACHING RADIATING TO L SHOULDER AND NECK 04/19. PT DENIES TAKING ANY MEDICATION TO RELIEVE PAIN AND CAME TO THE ED INSTEAD. ERMD AWARE. PMH: ASTHMA, DM2, HBP ALLERGIES: ENVIRONMENTAL MEDS: METFORMIN, GLUCOPHAGE, JANUVIA, ALBUTEROL
[2021-11-11 21:04] LABS: BASOPHILS # (AUTO) 0.1 K/uL (0.00-0.22); BASOPHILS % (AUTO) 1.3 % (0.0-2.0); EOSINOPHILS # (AUTO) 0.2 K/uL (0-0.4); EOSINOPHILS % (AUTO) 2.5 % (0.0-4.0); HEMATOCRIT 39.2 % (36-48); HEMOGLOBIN 12.8 g/dL (12.0-16.0); LYMPHOCYTES # (AUTO) 1.8 K/uL (2.5-16.5); LYMPHOCYTES % (AUTO) 28.2 % (20.5-51.1); MEAN CORPUSCULAR HEMOGLOBIN 26 pg (27-31); MEAN CORPUSCULAR HGB CONC 33 g/dL (33-37); MEAN CORPUSCULAR VOLUME 79.7 fL (80-94); MONOCYTES # (AUTO) 0.4 K/uL (0.8-1.0); MONOCYTES % (AUTO) 5.5 % (1.7-9.3); NEUTROPHILS # (AUTO) 4.1 K/uL (1.8-7.7); NEUTROPHILS % (AUTO) 62.5 % (42.2-75.2); PLATELET COUNT (AUTO) 234 K/uL (140-450); RED BLOOD CELL COUNT(AUTO) 4.92 MIL/uL (4.20-5.40); RED CELL DISTRIBUTION WIDTH 14.4 % (11.6-13.7); WHITE BLOOD COUNT (AUTO) 6.5 K/uL (4.8-10.8)
--- NOTE | 2021-11-11 21:10 | NUR ---
ERMD AT BEDSIDE WITH PT.
[2021-11-11 21:21] LABS: ALBUMIN 3.4 g/dL (3.4-5.0); ANION GAP 12.9 (8-16); CARBON DIOXIDE 29.3 mmol/L (21-32); CREATININE 0.8 mg/dL (0.6-1.3); POTASSIUM 4.2 mmol/L (3.5-5.1); TOTAL BILIRUBIN 0.2 mg/dL (0.0-1.0)
[2021-11-11 21:26] LABS: LIPASE 122 U/L (73-393)
--- NOTE | 2021-11-11 22:00 | NUR ---
PROVIDED PT WITH BLANKET AND PILLOW.
[2021-11-11] MEDS ORDERED: ROBAC PO (22:47)
[2021-11-11] MEDS ORDERED: METR0.7510 VG (22:52)
[2021-11-11 23:01] LABS: APPEARANCE,URINE CLEAR (CLEAR); BILIRUBIN,URINE NEGATIVE (NEGATIVE); BLOOD, URINE NEGATIVE (NEGATIVE); COLOR,URINE YELLOW (YELLOW); LEUKOCYTE ESTERASE ,URINE NEGATIVE (NEGATIVE); NITRITE, URINE NEGATIVE (NEGATIVE); UGLUCOSE TRACE (NEGATIVE)
[2021-11-11 23:04] VITALS: BP 119/67
--- NOTE | 2021-11-11 23:04 | NUR ---
Patient discharged with v/s stable. Written and verbal after care instructions given and explained. Patient alert, oriented and verbalized understanding of instructions. Ambulatory with steady gait. All questions addressed prior to discharge. ID band removed. Patient advised to follow up with PMD. Rx of METRONIDAZOLE AND CODEINE PHOSPHATE given. Patient REVIEWED on indication of medication including possible reaction and side effects. Opportunity to ask questions provided and answered.
== END 2021-11-11 23:04 | disposition home or self-care (01) ==
LOC: MED 18:53
DX: R07.9 Chest pain, unspecified (principal); R05.9 Cough, unspecified; J45.909 Unspecified asthma, uncomplicated; I11.9 Hypertensive heart disease without heart failure; K21.9 Gastro-esophageal reflux disease without esophagitis; E11.9 Type 2 diabetes mellitus without complications; Z90.49 Acquired absence of other specified parts of digestive tract; Z88.6 Allergy status to analgesic agent; Z88.5 Allergy status to narcotic agent; Z79.899 Other long term (current) drug therapy
CPT/HCPCS: 36415; 71045; 80053; 81003; 83690; 83880; 84484; 85025; 93005; 99285; Q0092

== ENCOUNTER 2022-06-10 00:15 | Emergency (ER) | payer MEDICAID, OTHER ==
[~2022-06-10] VITALS: Ht 165.1 cm; Wt 79.8 kg
[~2022-06-10 00:15] MED LIST changes: +METF-1139 PO; +METF-346 PO; -METF500T PO; -METF500T2 PO; +METR0.7510 VG; +ROBAC PO
[2022-06-10] MEDS ORDERED: ASPIRIN 325 MG TAB PO ONE (01:05)
[2022-06-10] MEDS ORDERED: NITROGLYCERIN 0.4 MG TAB SL ONE (01:05)
[2022-06-10 01:22] VITALS: BP 129/83
[2022-06-10 01:24] LABS: BASOPHILS # (AUTO) 0.1 K/uL (0.00-0.22); BASOPHILS % (AUTO) 1.2 % (0.0-2.0); EOSINOPHILS # (AUTO) 0.3 K/uL (0-0.4); EOSINOPHILS % (AUTO) 3.9 % (0.0-4.0); HEMATOCRIT 39.7 % (36-48); LYMPHOCYTES # (AUTO) 1.8 K/uL (2.5-16.5); LYMPHOCYTES % (AUTO) 28.4 % (20.5-51.1); MEAN CORPUSCULAR HEMOGLOBIN 27 pg (27-31); MEAN CORPUSCULAR HGB CONC 33 g/dL (33-37); MEAN CORPUSCULAR VOLUME 81.1 fL (80-94); MONOCYTES # (AUTO) 0.4 K/uL (0.8-1.0); MONOCYTES % (AUTO) 5.9 % (1.7-9.3); NEUTROPHILS # (AUTO) 3.9 K/uL (1.8-7.7); NEUTROPHILS % (AUTO) 60.6 % (42.2-75.2); PLATELET COUNT (AUTO) 231 K/uL (140-450); RED BLOOD CELL COUNT(AUTO) 4.89 MIL/uL (4.20-5.40); RED CELL DISTRIBUTION WIDTH 14.5 % (11.6-13.7); WHITE BLOOD COUNT (AUTO) 6.4 K/uL (4.8-10.8)
--- NOTE | 2022-06-10 01:31 | NUR ---
PT TAKEN TO ER BED 08
[2022-06-10 01:43] LABS: ALBUMIN 3.4 g/dL (3.4-5.0); ANION GAP 12.6 (8-16); ASPARTATE AMINOTRANSFERASE 12 U/L (15-37); CARBON DIOXIDE 29.5 mmol/L (21-32); CHLORIDE 98 mmol/L (98-107); CREATININE 0.8 mg/dL (0.6-1.3); GFR ARICAN-AMERICAN 94 mL/min (>90); GLUCOSE 336 mg/dL (74-106); POTASSIUM 4.1 mmol/L (3.5-5.1); SODIUM SERUM 136 mmol/L (136-145); TOTAL BILIRUBIN 0.3 mg/dL (0.0-1.0); UREA NITROGEN, BLOOD 13 mg/dL (7-18)
--- NOTE | 2022-06-10 01:58 | NUR ---
XRAY AT BEDSIDE
--- NOTE | 2022-06-10 02:17 | NUR ---
61YR OLD FEMALE BIB SELF C/O CP, ABD, WARREN X1DAY. PT IS A&OX4 ON BEDSIDE QUALITY SPECIALIST. PT STATES CP AND ABD ADELAIDE RYAN 12/17. DENIES SOB DENIES N/V. ACCU CHECK DONE . PT STATED HAVING A GLUC IN 400S AT HOME EARLIER. SKIN WARM AND DRY. RESP EVEN AND UNLABORED. HOB ELEVATED BED AT LOWEST POSITION. ACETAMINOPHEN \ HYDROCODONE CARDIAC HTN DM ASTHMA
--- NOTE | 2022-06-10 02:46 | NUR ---
SECOND TROP DRAWN PT RESTING IN BED RESP EVEN AND UNLABORED. PAIN LEVEL 5/10 . HEADACHE AFTER NITRO GIVEN.
[2022-06-10 02:50] VITALS: BP 115/80
--- NOTE | 2022-06-10 03:34 | NUR ---
PT WILL NOT BE ADMITTED TO HOSPITAL. WILL BE CLEARED FOR D/C . DISPO PAPERWORK PENDING
--- NOTE | 2022-06-10 04:06 | NUR ---
Patient discharged with v/s stable. Written and verbal after care instructions given and explained. Patient verbalized understanding. Ambulatory with steady gait. All questions addressed prior to discharge. Advised to follow up with PMD.
--- NOTE | 2022-06-10 04:08 | NUR ---
The patient's care was reviewed and supervised by Gaby Perez RN.
== END 2022-06-10 04:06 | disposition home or self-care (01) ==
LOC: MED 00:15
DX: R07.89 Other chest pain (principal); E11.9 Type 2 diabetes mellitus without complications; I10 Essential (primary) hypertension; K21.9 Gastro-esophageal reflux disease without esophagitis; I25.10 Atherosclerotic heart disease of native coronary artery without angina pectoris; Z79.4 Long term (current) use of insulin; Z79.899 Other long term (current) drug therapy
CPT/HCPCS: 36415; 71045; 80053; 82948; 84484; 85025; 93005; 99285; Q0092